=== PATIENT | female | born 1960 | race Caucasian/White ===

== ENCOUNTER 2018-09-27 19:59 | Emergency (ER) | payer MEDICARE ==
[~2018-09-27] VITALS: Ht 172.7 cm; Wt 74.8 kg
[2018-09-27] MEDS ORDERED: Keflex500 MG PO (20:35)
[2018-11-18] MEDS ORDERED: Prednisone50 MG PO
[2018-11-18] MEDS ORDERED: CEPH500 PO
[2018-11-18] MEDS ORDERED: Pepcid40 MG PO
== END 2018-09-27 21:14 | disposition home or self-care (01) ==
LOC: ER 19:59
DX: J02.0 Streptococcal pharyngitis (principal); R03.0 Elevated blood-pressure reading, without diagnosis of hypertension; Z88.0 Allergy status to penicillin; Z88.5 Allergy status to narcotic agent; E11.9 Type 2 diabetes mellitus without complications; F17.200 Nicotine dependence, unspecified, uncomplicated
CPT/HCPCS: 87430; 99282

== ENCOUNTER 2018-10-30 13:47 | Emergency (ER) | payer MEDICARE ==
[~2018-10-30] VITALS: Ht 152.4 cm; Wt 81.7 kg
[~2018-10-30 13:47] MED LIST: Keflex500 MG PO
[2018-10-30] MEDS ORDERED: Metformin Hydro25 GM MC (13:56)
[2018-10-30] MEDS ORDERED: LORA2 PO (13:57)
[2018-10-30] MEDS ORDERED: ANAS1 PO (13:57)
[2018-10-30] MEDS ORDERED: PREG300 PO (13:57)
[2018-10-30] MEDS ORDERED: TEMA30 PO (13:57)
[2018-10-30] MEDS ORDERED: Pravachol40 MG PO (13:57)
[2018-10-30] MEDS ORDERED: DULO60 PO (13:58)
[2018-10-30] MEDS ORDERED: BENZ100A PO (14:52)
[2018-11-18] MEDS ORDERED: Pepcid40 MG PO
[2018-11-18] MEDS ORDERED: Prednisone50 MG PO
[2018-11-18] MEDS ORDERED: CEPH500 PO
== END 2018-10-30 15:14 | disposition home or self-care (01) ==
LOC: ER 13:47
DX: J06.9 Acute upper respiratory infection, unspecified (principal); E11.9 Type 2 diabetes mellitus without complications; E78.5 Hyperlipidemia, unspecified; Z88.0 Allergy status to penicillin; Z88.5 Allergy status to narcotic agent; Z88.2 Allergy status to sulfonamides; Z88.8 Allergy status to other drugs, medicaments and biological substances; Z85.3 Personal history of malignant neoplasm of breast; Z87.891 Personal history of nicotine dependence
CPT/HCPCS: 71046; 99283-25

== ENCOUNTER 2018-11-18 21:40 | Emergency (ER) | payer MEDICARE ==
[~2018-11-18] VITALS: Ht 172.7 cm; Wt 77.1 kg
[~2018-11-18 21:40] MED LIST changes: +ANAS1 PO; +BENZ100A PO; +CEPH500 PO; +DULO60 PO; +LORA2 PO; +Metformin Hydro25 GM MC; +PREG300 PO; +Pepcid40 MG PO; +Pravachol40 MG PO; +Prednisone50 MG PO; +TEMA30 PO
[2018-11-18] MEDS ORDERED: METF500C PO (22:41)
== END 2018-11-19 00:16 | disposition home or self-care (01) ==
LOC: ER 21:40
DX: L50.0 Allergic urticaria (principal); L03.115 Cellulitis of right lower limb; F41.9 Anxiety disorder, unspecified; E11.9 Type 2 diabetes mellitus without complications; E78.5 Hyperlipidemia, unspecified; Z85.3 Personal history of malignant neoplasm of breast; Z87.891 Personal history of nicotine dependence; Z88.0 Allergy status to penicillin; Z88.5 Allergy status to narcotic agent; Z88.2 Allergy status to sulfonamides; Z88.1 Allergy status to other antibiotic agents; Z79.899 Other long term (current) drug therapy; Z79.84 Long term (current) use of oral hypoglycemic drugs
CPT/HCPCS: 36415; 96374; 96375; 99283-25; J1100

== ENCOUNTER 2019-02-04 21:05 | Emergency (ER) | payer MEDICARE ==
[~2019-02-04] VITALS: Ht 172.7 cm; Wt 72.6 kg
[~2019-02-04 21:05] MED LIST changes: +METF500C PO
[2019-02-04 22:05] LABS: BASOPHILS ABSOLUTE AUTO 0.07 K/mm3 (0.00-0.23); BASOPHILS PERCENT AUTO 1 % (0-2); EOSINOPHILS ABSOLUTE AUTO 0.18 K/mm3 (0.00-0.68); EOSINOPHILS PERCENT AUTO 3 % (0-6); Hemoglobin 13.6 g/dL (11.5-16.0); IMMATURE GRAN ABSOLUTE AUTO 0.01 K/mm3 (0.00-0.10); IMMATURE GRAN PERCENT AUTO 0 % (0-1); LYMPHOCYTES ABSOLUTE AUTO 2.05 K/mm3 (0.84-5.20); LYMPHOCYTES PERCENT AUTO 34 % (21-46); MONOCYTES ABSOLUTE AUTO 0.54 K/mm3 (0.16-1.47); MONOCYTES PERCENT AUTO 9 % (4-13); Mean Corpuscular HGB 29.8 pg (26.0-34.0); Mean Corpuscular Volume 88 fL (80-100); Mean Platelet Volume 10.1 fL (9.1-12.4); NEUTROPHILS ABSOLUTE AUTO 3.17 K/mm3 (1.96-9.15); NEUTROPHILS PERCENT AUTO 53 % (41-73); Platelet Count 237 K/mm3 (150-400); RDW Coefficient Variation 12.7 % (11.7-14.2); RDW Standard Deviation 40.6 fL (35.1-46.3); Red Blood Cell Count 4.57 M/mm3 (3.80-5.20); White Blood Cell Count 6.02 K/mm3 (4.00-11.30)
[2019-02-04 22:22] LABS: Albumin, Blood 3.9 g/dL (3.4-5.0); Albumin/Globulin Ratio 1.1 (0.8-1.8); Bilirubin, Total 0.4 mg/dL (0.1-1.0); Bun/Creatinine Ratio 15.3 (12.0-20.0); Calcium, Blood 8.5 mg/dL (8.5-10.1); Creatinine, Blood 1.44 mg/dL (0.40-1.00); Globulin, Blood 3.4 g/dL (2.2-4.0); Potassium, Blood 3.4 mmol/L (3.5-5.5); Total Protein, Blood 7.3 g/dL (6.4-8.2)
[2019-02-04] MEDS ORDERED: ONDA4ODT MM (23:19)
[2019-02-05] MEDS ORDERED: PROC5 PO (00:21)
== END 2019-02-05 00:34 | disposition home or self-care (01) ==
LOC: ER 21:05
PROVIDERS: Physician Assistant
DX: K85.90 Acute pancreatitis without necrosis or infection, unspecified (principal); E11.9 Type 2 diabetes mellitus without complications; E78.00 Pure hypercholesterolemia, unspecified; Z88.0 Allergy status to penicillin; Z88.5 Allergy status to narcotic agent; Z79.899 Other long term (current) drug therapy; Z87.891 Personal history of nicotine dependence
CPT/HCPCS: 36415; 80053; 83690; 84484; 85025; 93005; 93010; 96374; 99283-25; A9270; A9270-GY; J2405